=== PATIENT | male | born 1955 | race Caucasian/White ===

== ENCOUNTER 2024-07-18 15:12 | Emergency (ER) | payer MEDICARE, SELFPAY ==
[2024-07-18 15:14] VITALS: BP 181/101
[2024-07-18 15:18] VITALS: BP 162/109
[2024-07-18 15:41] LABS: % Basophils 0.6 % (0-2); % Eosinophils 0.6 % (0-6); % Lymphocytes 16.9 % (20.5-51.1); % Neutrophils 71.9 % (42.2-75.2); Absolute Basophils 0.1 10^3/uL (0-0.2); Absolute Eosinophils 0.1 10^3/uL (0-0.7); Absolute Immature Granulocytes 0.1 10^3/uL (0-0.05); Absolute Lymphocytes 1.3 10^3/uL (1.2-3.4); Absolute Monocytes 0.7 10^3/uL (0.1-0.6); Absolute Neutrophils 5.6 10^3/uL (1.4-6.5); Hematocrit 44.2 % (39.0-52.0); Hemoglobin 15.1 g/dL (13.0-18.0); Mean Corp Hgb Conc. 34.2 g/dL (33.0-37.0); Mean Corpuscular Hgb 29.5 pg (27.0-31.0); Mean Corpuscular Volume 86.5 fL (80.0-94.0); Mean Platelet Volume 10.3 fL (7.4-10.4); Nucleated Red Blood Cells % 0 % (-); Platelet Count 240 10^3/uL (130-400); Red Blood Cell Count 5.11 10^6/uL (4.70-6.10); Red Cell Dist. Width 14.6 % (11.5-14.5); White Blood Cell Count 7.8 10^3/uL (4.8-10.8)
[2024-07-18 15:56] LABS: ALT (SGPT) 33 U/L (0-50); AST (SGOT) 27 U/L (17-59); Albumin 4.5 g/dl (3.5-5.0); Alkaline Phosphatase 53 U/L (38-126); Blood Urea Nitrogen 17 mg/dl (9-20); Calcium 10.1 mg/dl (8.4-10.2); Carbon Dioxide 27 mmol/L (22-30); Chloride 106 mmol/L (98-107); Glucose 143 mg/dl (70-99); Potassium 4.1 mmol/L (3.5-5.1); Sodium 140 mmol/L (135-145); Total Bilirubin 0.4 mg/dl (0.2-1.3); Total Protein 7.5 g/dl (6.3-8.2); eGFR > 60.00
[2024-07-18 16:10] LABS: Troponin I < 0.012 ng/ml
[2024-07-18 16:25] VITALS: BMI 27.1
--- NOTE | 2024-07-18 17:29 | ED.GENMED ---
History of Present Illness
General
Chief Complaint: Back Pain
Source: patient
Time Seen by Provider: 07/18/24 17:03
History of Present Illness
History of Present Illness:
68-year-old male presents to the emergency room complaining of pain in his upper thorax and back. Pain was noted today while he was doing some cleaning at work. 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
Pain began about 11 AM. He denies associated shortness of breath, chest pain, nausea. He states the pain was worse with movement. He has no symptoms at the time my evaluation. Pain is completely gone
Phy Exam
Physical Exam
Physical Exam:
General: Awake, Alert, Oriented X3. No acute distress.
Vitals: unremarkable
Head: Atraumatic
Eyes: Pupils equal, EOMI
Throat: Airway intact, no exudates
Neck: Trachea midline
Lungs: Clear and equal b/l
Heart: Regular rate, no murmurs
Abd: Soft, Nontender, No pulsatile mass
Back: Some mild tenderness to palpation the paraspinal musculature of the upper thoracic region
Neuro: Nonfocal
Skin: Warm, dry, no rash
Extremities: pulses equal b/l, no edema
Course
Orders/Labs/Results
Orders:
Orders
07/18/24 15:17
EKG [Electrocardiogram (*1)] Urgent
Reason for Study: Other
Other Reason for Exam: back pain
07/18/24 15:18
EKG- Treatment ONCE
07/18/24 15:27
Complete Blood Count/With Diff Urgent
Comprehensive Metabolic Panel Urgent
Troponin I Urgent
Abnormal Lab Results
07/18/24
15:27
RDW 14.6 H %
(11.5-14.5)
Abs Immat Gran (auto) 0.1 H 10^3/uL
(0-0.05)
Absolute Monos (auto) 0.7 H 10^3/uL
(0.1-0.6)
Immature Gran % 1.0 H %
(0-0.5)
Lymphocytes % 16.9 L %
(20.5-51.1)
Glucose 143 H mg/dl
(70-99)
07/18/24 15:27
07/18/24 15:27
Vital Signs
Initial and Last Documented VS:
Initial Vital Signs
Temp Pulse Resp BP Pulse Ox
98.4 F 104 18 181/101 99
07/18/24 15:14 07/18/24 15:14 07/18/24 15:14 07/18/24 15:14 07/18/24 15:14
Last Documented Vital Signs
Temp Pulse Resp BP Pulse Ox
98.4 F 104 18 162/109 99
07/18/24 15:14 07/18/24 15:14 07/18/24 15:14 07/18/24 15:18 07/18/24 16:26
MDM/Problems Addressed
Differential Diagnosis Includes:
Thoracic muscle strain, anginal equivalent,
MDM/Problems Addressed:
Patient presents with thoracic pain. Presentation seems most consistent with a muscular source. EKG shows no acute ischemic changes. Troponin is negative. He presented greater than 3 hours after the onset of symptoms I would expect his troponin
to be positive at this point. Patient has no symptoms at the time of my evaluation. Patient stable for discharge home
Chronic conditions affecting care: HTN
*Pulse Oximetry
Patient hypoxic: no
*EKG
Interpreted by ED Provider?: Yes
Heart Rate: 92
Rate: normal
Rhythm: sinus and PAC's
[place]: normal axis
Interval: normal interval
QRS Pattern: normal QRS
Ischemia: no ischemia
*Observation Nurse Interpretation
Rate: normal
Interpretation: normal
Rhythm: sinus and PAC's
*Critical Care Note
Total Time (30-74mins, 75-104mins- exclusive of procedures): Not Applicable
ED Attending Note
-
Portions of this chart may have been created with voice recognition software.� Occasional wrong word or��sound alike� substitutions may have occurred due to the inherent limitations of voice recognition software.
Discharge Plan
Departure
Patient Disposition: Home (Routine Discharge)
Date of Disposition: 07/18/24
Time of Disposition: 17:30
Patient with high blood pressure during this ER visit?: Yes
Condition: Good
Discharge Problem:
Strain of thoracic region
Instructions: Upper Back Pain (DC), BLOOD PRESSURE
Referrals:
Robb Parisi MD [Family Provider] -
Activity Restrictions/Additional Instructions:
Please follow up with your primary doctor
Interventions
Interventions:
*Risk Screen - Suicide Last Done: 07/18/24 15:16
*General Assessment Last Done: 07/18/24 15:16
*Neglect/Abuse Screening Last Done: 07/18/24 15:16
*ED- Fall Risk Assessment Last Done: 07/18/24 16:30
*ED COVID-19 Vaccine History Last Done: 07/18/24 15:16
*Nursing Disposition Last Done: 07/18/24 17:44
ED-Musculoskeletal Assessment Last Done: 07/18/24 16:26
Discharge Date and Time
Discharge Date/Time: 07/18/24 17:44
Print Language: SLOVENIAN
== END 2024-07-18 17:44 | disposition home or self-care (01) ==
LOC: EMR 15:12
PROVIDERS: EMERGENCY PHYSICIAN Emergency Medicine; FAMILY PHYSICIAN Internal Medicine
DX: S29.012A Strain of muscle and tendon of back wall of thorax, initial encounter (principal); X58.XXXA Exposure to other specified factors, initial encounter; I10 Essential (primary) hypertension; Z88.8 Allergy status to other drugs, medicaments and biological substances; Z91.013 Allergy to seafood
CPT/HCPCS: 99283; 80053; 84484; 85025; 93005